=== PATIENT | male | born 1955 | race Caucasian/White ===

== ENCOUNTER 2018-04-15 10:03 | Outpatient (CLI) | payer OTHER ==
[~2018-04-15 10:03] MED LIST: TAMS0.4C PO
== END 2018-04-15 10:10 | disposition home or self-care (01) ==
LOC: LAB 10:03
DX: C61 Malignant neoplasm of prostate (principal); N30.10 Interstitial cystitis (chronic) without hematuria

== ENCOUNTER 2018-04-15 10:49 | Outpatient (CLI) | payer OTHER | END 2018-04-15 10:56 | disposition home or self-care (01) | LOC: SONOGRAMA 10:49 → MAMO-SONO 11:15 | DX: N30.00 Acute cystitis without hematuria (principal) ==